=== PATIENT | male | born 1990 | race Caucasian/White ===

== ENCOUNTER → 2017-09-25 | Outpatient (CLI) | payer OTHER ==
[2017-09-25 17:05] LABS: BASO % 1.1 %; BASO ABS # 0.06 K/uL (0-0.2); EOS % 6.2 %; EOS ABS # 0.33 K/uL (0-0.5); HEMATOCRIT 39.1 % (42-52); HEMOGLOBIN 13.3 g/dL (14.0-18.0); IG# 0.02 K/uL (0.00-0.02); LYMPH % 29.6 %; LYMPH ABS # 1.58 K/uL (1.2-3.4); MEAN CELL VOLUME 91.4 fL (80-100); MEAN CORPUSCULAR HEMOGLOBIN 31.1 pg (25-34); MEAN PLATELET VOLUME 10.1 fL (7.4-10.4); MONO % 9.9 %; MONO ABS # 0.53 K/uL (0.11-0.59); NEUT % 52.8 %; NEUT ABS # 2.82 K/uL (1.4-6.5); PLATELET COUNT 272 K/uL (130-400); RED CELL DISTRIBUTION WIDTH CV 15.8 % (11.5-14.5); WHITE BLOOD COUNT 5.34 K/uL (4.8-10.8)
[2017-09-25 17:20] LABS: ALBUMIN 3.2 gm/dl (3.4-5.0); ALT/SGPT 26 U/L (12-78); AST/SGOT 19 U/L (15-37); BLOOD UREA NITROGEN 14 mg/dl (7-18); CALCIUM 8.5 mg/dl (8.5-10.1); CARBON DIOXIDE 27 mmol/L (21-32); CREATININE 1.01 mg/dl (0.60-1.40); GLUCOSE 91 mg/dl (70-99); POTASSIUM 4.7 mmol/L (3.5-5.1); SODIUM 136 mmol/L (136-145)
[2017-09-25 17:31] LABS: ALKALINE PHOSPHATASE 116 U/L (45-117); CHOLESTEROL 139 mg/dl (0-200); LDL CHOLESTEROL CALCULATED 82 mg/dl; TOTAL PROTEIN 7.6 gm/dl (6.4-8.2)
== END | disposition home or self-care (01) ==
LOC: C.LABBC 13:29
PROVIDERS: ATTEND Nurse Practitioner Adult Health
DX: E03.9 Hypothyroidism, unspecified (principal); D64.9 Anemia, unspecified; Q24.9 Congenital malformation of heart, unspecified